=== PATIENT | female | born 1980 | race Caucasian/White ===

== ENCOUNTER 2022-12-19 14:19 | Emergency (ER) | payer BC, OTHER ==
[2022-12-19 15:50] LABS: ESTIMATED GFR 111 mL/min (>60)
[2022-12-19 16:54] VITALS: BP 121/77; PULSE 76
== END 2022-12-19 16:33 | disposition home or self-care (01) ==
LOC: FB.ED 14:19
DX: H53.8 Other visual disturbances (principal); F43.9 Reaction to severe stress, unspecified; I10 Essential (primary) hypertension
CPT/HCPCS: 36415; 80053; 85025; 86140; 99284